=== PATIENT | female | born 1975 | race Caucasian/White ===

== ENCOUNTER 2018-01-22 10:39 | Emergency (ER) | payer BC ==
[2018-01-22 13:19] VITALS: BP 141/75
--- NOTE | 2018-01-22 13:24 | UC ---
UC General HPI - HPI Summary HPI Summary: pain and swelling to top of L foot x 3 days. began after slipped on some water. no cp, sob, calf pain. admits to some mild swelling BLE that resolves at night but that is chronic. - History of Current Complaint Stated Complaint: LFT FOOT SWELLING Time Seen by Provider: 01/22/18 13:11 Hx Obtained From: Patient Onset/Duration: Gradual Onset Timing: Constant Aggravating: prolong standing-swells Alleviating: elevation-improves swelling Associated Signs & Symptoms: Negative: Cough, Chest Pain, Fever - Allergy/Home Medications Allergies/Adverse Reactions: Allergies Allergy/AdvReac Type Severity Reaction Status Date / Time No Known Allergies Allergy Verified 01/22/18 13:19 Home Medications: Home Medications Levothyroxine TAB* [Synthroid TAB*] 200 mcg PO DAILY 01/22/18 [History Confirmed 01/22/18] Lisinopril TAB* [Prinivil TAB*] 10 mg PO DAILY 01/22/18 [History Confirmed 01/22] PMH/Surg Hx/FS Hx/Imm Hx - Additional Past Medical History Additional PMH: PCOS, allergies Endocrine History: Thyroid Disease Cardiovascular History: Hypertension - Surgical History Surgical History: Yes - , tonsils - Family History Known Family History: Positive: Cardiac Disease, Diabetes, Other - [place] - Social History Occupation: Employed Full-time Lives: With Family Substance Use Type: None Have You Smoked in the Last Year: No - Immunization History Vaccination Up to Date: Yes Review of Systems Constitutional: Negative Skin: Negative Eyes: Negative ENT: Negative Respiratory: Negative Cardiovascular: Negative Gastrointestinal: Negative Genitourinary: Negative Motor: Negative Neurovascular: Negative Musculoskeletal: Other: - pain with swelling top of L foot Neurological: Negative Psychological: Negative Is Patient Immunocompromised?: No All Other Systems Reviewed And Are Negative: Yes Physical Exam Triage Information Reviewed: Yes Appearance: Well-Appearing Vital Signs Reviewed: Yes Eyes: Positive: Conjunctiva Clear ENT: Positive: Normal ENT inspection Neck: Positive: Supple, Nontender, No Lymphadenopathy Respiratory: Positive: Lungs clear, Normal breath sounds Cardiovascular: Positive: RRR, No Murmur Abdomen Description: Positive: Nontender, No Organomegaly, Soft Bowel Sounds: Positive: Present Musculoskeletal: Positive: Other: - Mild swelling with pitting edema lower 1/3 of each leg. No calf tenderness or cords. L dorsal foot with mild swelling and tender over the 2nd metatarsal. not red or warm. s/v/m is tact to BLE's Neurological: Positive: Alert Psychological: Positive: Age Appropriate Behavior Skin Exam: Normal Diagnostics - Radiology No standard instances Radiology Interpretation Completed By: Radiologist - sts, no fx Course/Dx - Course Course Of Treatment: the leg swelling is chronic and unchanged plus no calf pain or cords and no cp or thus thus no concern for dvt. swelling to dorsal L foot with no red or warmth and no fever thus no concern for cellulitis. point tender over 2nd metatarsal thus possible stress fx. will ed and post op shoe. ortho f/u. xray sts but no fx. do no not feel gout. hx HTN, tx - Differential Dx - Multi-Symptom Provider Diagnoses: Acute L dorsal foot pain/swelling. Possible stress fx. Discharge - Sign-Out/Discharge Documenting (check all that apply): Discharge/Admit/Transfer - Discharge Plan Condition: Stable Disposition: HOME Patient Education Materials: Foot Fracture in Adults (ED) Referrals: Tisha Franks MD [Primary Care Provider] - If Needed Rafael Orlando MD [Medical Doctor] - As Soon As Possible Additional Instructions: ED AND POST OP SHOE DURING DAY-REMOVE FOR BEDTIME. GO TO ER FOR ANY CALF PAIN/SWELLING OR WORSENING. - Billing Disposition and Condition Condition: STABLE Disposition: HOME
--- NOTE | 2018-01-22 13:51 | RAD ---
INDICATION: Left foot injury. TECHNIQUE: 3 views of the left foot were obtained. FINDINGS: There is diffuse soft tissue swelling which is most prominent over the dorsal aspect of the foot. No fracture is seen. Joint spaces appear maintained. IMPRESSION: SOFT TISSUE INJURY, NO FRACTURE IS SEEN. IF THE PATIENT'S SYMPTOMS PERSIST RECOMMEND FOLLOW-UP IMAGING.
== END 2018-01-22 14:05 | disposition home or self-care (01) ==
LOC: UCCORT 10:39
DX: M79.672 Pain in left foot (principal); M79.89 Other specified soft tissue disorders; W01.0XXA Fall on same level from slipping, tripping and stumbling without subsequent striking against object, initial encounter; Y93.9 Activity, unspecified; Y92.9 Unspecified place or not applicable; I10 Essential (primary) hypertension
CPT/HCPCS: 99202; G0463

== ENCOUNTER 2019-01-26 20:22 | Emergency (ER) | payer BC ==
[2019-01-26 21:05] VITALS: BP 156/87
--- NOTE | 2019-01-26 21:36 | UC ---
Throat Pain/Nasal Riaz HPI - HPI Summary HPI Summary: 43 year old female presents with 6 day history of nasal congestion, sinus pressure, and mild sore throat. States she thought symptoms may have been allergies as they were improving then yesterday symptoms began to worsen and she developed right ear pain. She was prescribed doxycycline 100 mg BID by her porter luggage today to treat her rosacea. Denies fever, chills, dysphagia, chest pain, SOB, or cough. - History of Current Complaint Chief Complaint: UCEar Stated Complaint: RIGHT EAR/EYE, SORE THROAT Time Seen by Provider: 01/26/19 21:19 Hx Obtained From: Patient Hx Last Menstrual Period: [id number] Pain Intensity: 6 - Allergies/Home Medications Allergies/Adverse Reactions: Allergies Allergy/AdvReac Type Severity Reaction Status Date / Time No Known Allergies Allergy Verified 01/26/19 21:05 Home Medications: Home Medications DOXYcycline CAP(*) [DOXYcycline 100MG CAP(*)] 100 mg PO BID 01/26/19 [History Confirmed 01/26/19] PMH/Surg Hx/FS Hx/Imm Hx Previously Healthy: Yes Endocrine History: Hypothyroidism - Surgical History Surgical History: Yes Surgery Procedure, Year, and Place: T&A, c-sec x1 - Family History Known Family History: Positive: Cardiac Disease, Diabetes, Other - [place] - Social History Occupation: Employed Full-time Lives: With Family Alcohol Use: Occasionally Substance Use Type: None Smoking Status (MU): Never Smoked Tobacco Have You Smoked in the Last Year: No - Immunization History Vaccination Up to Date: Yes Review of Systems All Other Systems Reviewed And Are Negative: Yes Physical Exam - Summary Physical Exam Summary: GENERAL APPEARANCE: Well developed, well nourished, alert and cooperative, and appears to be in no acute distress. EYES: Conjunctiva clear. No drainage. EARS: External auditory canals clear, left TM opaque with good cone of light, right TM with air bubbles without erythema, hearing grossly intact. NOSE: Mild nasal congestion. No nasal discharge. THROAT: Mild pharyngeal erythema with cobblestoning. Tonsils surgically absent. Uvula midline. Oral cavity normal. Teeth and gingiva in good general condition. NECK: Neck supple, non-tender without lymphadenopathy. CARDIAC: Normal S1 and S2. No S3, S4 or murmurs. Rhythm is regular. There is no peripheral edema, cyanosis or pallor. Extremities are warm and well perfused. Capillary refill is less than 2 seconds. Peripheral pulses intact. LUNGS: Clear to auscultation without rales, rhonchi, wheezing or diminished breath sounds. ABDOMEN: Positive bowel sounds. Soft, nondistended, nontender. No guarding or rebound. No masses or hepatosplenomegally. MUSKULOSKELETAL: ROM intact to all extremities. No joint erythema or tenderness. Normal muscular development. Normal gait. SKIN: Skin normal color, texture and turgor with no lesions or eruptions. Triage Information Reviewed: Yes Vital Signs: Initial Vital Signs Temp 97.8 F 01/26/19 21:00 Pulse 77 01/26/19 21:00 Resp 16 01/26/19 21:00 BP 156/87 01/26/19 21:00 Pulse Ox 100 01/26/19 21:00 Vital Signs Reviewed: Yes Throat Pain/Nasal Course/Dx - Course Course Of Treatment: 89 year old female presents with 6 day history of nasal congestion, sinus pressure, and mild sore throat. States she thought symptoms may have been allergies as they were improving then yesterday symptoms began to worsen and she developed right ear pain. She was prescribed doxycycline 100 mg BID by her porter luggage today to treat her rosacea. Denies fever, chills, dysphagia, chest pain, SOB, or cough. Afebrile. Hypertensie otherwise VSS. Exam revealed Mild nasal congestion, mild pharyngeal erythema with cobblestoning, and right TM with air bubbles. Discussed with patient that symptoms are likely from a viral infection vs allergies however the doxycycline she was proscribed would theoretically cover for possible bacterial cause. Will treat symptomatically including fluticasone nasal spray. She is to follow up with her PCP in 3-5 days if symptoms persist. Anticipatory guidance and warning symptoms were reviewed with the patient. Verbalizes understanding and agrees with POC. - Differential Dx/Diagnosis Differential Diagnosis/HQI/PQRI: Otitis Media, Pharyngitis, Sinusitis, URI Provider Diagnosis: Acute serous otitis media of right ear, Pharyngitis Discharge - Sign-Out/Discharge Documenting (check all that apply): Patient Departure All imaging exams completed and their final reports reviewed: No Studies - Discharge Plan Condition: Stable Disposition: HOME Prescriptions: Fluticasone NASAL SPRAY 50MCG* [Flonase NASAL SPRAY 50MCG*] 2 spray BOTH NARES DAILY #1 btl Patient Education Materials: Pharyngitis (ED), Serous Otitis Media (ED) Referrals: Sara Ospina MD [Primary Care Provider] - 3 Days Additional Instructions: Use fluticasone (Flonase) nasal spray 2 sprays each nostril once daily. Take over the counter acetaminophen (Tylenol) or ibuprofen (Advil, Motrin) according to directions as needed for pain or fever. Use salt water gargles several times a day if you have a sore throat. You may also use Chloraseptic spray or Cepacol lonzenges according to directions which contain a numbing medication and can provide some temporary relief from your sore throat. Follow up with your primary care provider in 3-5 days if symptoms persist. Seek immediate medical attention in the emergency room if you have fever greater than 100.5 F despite taking acetaminophen or ibuprofen, have chest pain , difficulty breathing, are unable to swallow, or have any worsening of symptom - Billing Disposition and Condition Condition: STABLE Disposition: Home
== END 2019-01-26 21:53 | disposition home or self-care (01) ==
LOC: UCCORT 20:22
DX: H65.01 Acute serous otitis media, right ear (principal); J02.9 Acute pharyngitis, unspecified; E03.9 Hypothyroidism, unspecified
CPT/HCPCS: 99212; G0463